=== PATIENT | male | born 1955 | race Caucasian/White ===

== ENCOUNTER → 2019-03-03 11:28 | Outpatient (BNVA) | payer MEDICARE, BC, SELFPAY | PROVIDERS: Family Provider Family Medicine; PCP Family Medicine; Visit Provider Urology | DX: R31.0 Gross hematuria (principal); N99.89 Other postprocedural complications and disorders of genitourinary system; R97.20 Elevated prostate specific antigen [PSA] | CPT/HCPCS: 81001; 84153; 87086 ==

== ENCOUNTER → 2019-03-04 13:16 | Outpatient (BNVA) | payer BC, SELFPAY | PROVIDERS: Family Provider Family Medicine; PCP Family Medicine; Visit Provider Urology | DX: R31.0 Gross hematuria (principal) | CPT/HCPCS: 88112 ==

== ENCOUNTER 2019-03-14 08:05 | Outpatient (CLI) | payer MEDICARE, SELFPAY ==
--- NOTE | 2019-03-14 08:17 | CT_ITS ---
WS: [id number] CT ABDOMEN AND PELVIS WITH AND WITHOUT CONTRAST HISTORY: HEMATURIA TECHNIQUE: Unenhanced 5 mm axial imaging first performed through the abdomen. Post contrast imaging t hrough the abdomen and pelvis. Oral contrast has been provided. Sagittal and coronal reformats are s ubmitted. All CT scans at [facility] use at least one of these dose optimization techniqu es: automated exposure control; mA and/or kV adjustment per patient size (includes targeted exams whe re dose is matched to clinical indication); or iterative reconstruction. CONTRAST: Omnipaque 300; 95 mL IV. DLP: 2730.32 mGycm COMPARISON: Renal ultrasound 09/28/2016 Lung bases are clear. No cardiomegaly. Small hiatal hernia. Mild hepatic steatosis. Prior cholecystectomy. No bile duct dilatation. Normal spleen, pancreas and a drenal glands. Mild atherosclerosis aorta with no aneurysm. RIGHT kidney: Normal size kidney with mild perinephric stranding. There is a tiny cortical hypodensit y in the upper pole measuring 6 mm. No enhancement. No renal calcifications or ureteral dilatation. N o enhancing mass. No urological abnormality. LEFT kidney: Normal size LEFT kidney. Simple cortical cyst measuring 1.3 cm in the lower pole. No sunita id mass. There is an additional very small hypodensity in the upper pole which is probably a cyst als o. No enhancement. Mild perinephric stranding with no obstruction. Mild tortuosity and narrowing of t he mid LEFT ureter but no soft tissue mass on the delayed imaging. No adenopathy, free fluid or free air. The appendix is normal. Moderate fecal retention. Bilateral fat-containing patent inguinal canals. Urinary bladder is well distended. Ureters enter int o the posterior lateral urinary bladder without difficulty. No obstruction of the ureters. Prostate g land is only very slightly enlarged. No adenopathy in the pelvis. Multilevel lower thoracic and lumbar spondylosis. No fractures are identified. No osteoblastic or ost eolytic bone disease. CT/CT abdomen pelvis wo/w [id number] IMPRESSION: 1. No solid mass, renal calcification or obstruction. 2. Mild tortuosity of the mid to distal LEFT ureter. No urological mass identi fied. 3. Small cysts within each kidney. 4. Prior cholecystectomy. 5. Mild prostate gland enlargement. 6. Mild constipation. 7. Mild hepatic steatosis.
[2019-03-14] MEDS: iohexol 300 mg/mL 50 mL Btl PO (09:40)
[2019-03-14 10:03] LABS: Blood Urea Nitrogen 11 mg/dL (8-23)
[2019-03-14] MEDS: iohexol 300 mg/mL 100 mL Btl IV (10:12)
== END 2019-03-14 08:06 | disposition home or self-care (01) ==
PROVIDERS: Family Provider Family Medicine; PCP Family Medicine; Visit Provider Urology
DX: R31.9 Hematuria, unspecified (principal); Q61.02 Congenital multiple renal cysts; N40.0 Benign prostatic hyperplasia without lower urinary tract symptoms; K59.00 Constipation, unspecified; K76.0 Fatty (change of) liver, not elsewhere classified
CPT/HCPCS: 74178; 81001; 82565; 84153; 84520; Q9967

== ENCOUNTER 2019-03-21 08:06 | Outpatient (REF) | payer MEDICARE, SELFPAY ==
[2019-03-21 13:15] LABS: Chol HDL Ratio 3.69 mg/dL (1.0-5.00); Cholesterol 199 mg/dL (0-200); Glucose 91 mg/dL (65-115); HDL Cholesterol 54 mg/dL (60-100); LDL Cholesterol Calculated 95 mg/dL (50-129); LDL HDL Ratio 1.76 RATIO (0.00-3.22); Triglycerides 252 mg/dL (0-150)
[2019-03-21 13:45] LABS: Estmated Average Glucose 126
== END 2019-03-21 08:07 | disposition home or self-care (01) ==
LOC: LAB 08:06
PROVIDERS: Family Provider Family Medicine; PCP Family Medicine; Visit Provider Dermatology
DX: Z01.89 Encounter for other specified special examinations (principal)
CPT/HCPCS: 80061; 82947; 83036

== ENCOUNTER → 2019-11-05 14:30 | Outpatient (BNVA) | payer MEDICARE, SELFPAY | PROVIDERS: Family Provider Family Medicine; PCP Family Medicine; Referring Provider Dermatology; Visit Provider Dermatology | DX: L73.9 Follicular disorder, unspecified (principal); L82.1 Other seborrheic keratosis; L91.8 Other hypertrophic disorders of the skin | CPT/HCPCS: 99203 ==

== ENCOUNTER 2020-08-04 09:10 | Outpatient (CLI) | payer MEDICARE, SELFPAY ==
--- NOTE | 2020-08-04 09:23 | XR_ITS ---
WS: [id number] Right shoulder, 2 views, 08/04/2020 Clinical Data: SHOULDER PAIN Comparison: None. Findings: There is osteoarthritis and narrowing of the right shoulder joint. There is a prominent spur of the r ight lesser tuberosity. There is spurring of the inferior aspect of the right glenoid rim. There are no fractures or dislocations. Mild osteoarthritis of the right AC joint is seen. The adjacent right c lavicle, scapula and ribs are normal. Soft tissues are unremarkable. XR/XR shoulder RT min 2V* [id number] Impression: 1. Moderate osteoarthritis of the right shoulder joint. 2. Mild osteoarthritis of the right AC joint.
--- NOTE | 2020-08-04 09:23 | XR_ITS ---
WS: [id number] Left shoulder, 2 views, 08/04/2020 Clinical Data: SHOULDER PAIN Comparison: None. Findings: There is a small spur of the left lesser tuberosity. There is minimal irregularity of the inferior le ft glenoid rim. There is osteoarthritis of the left AC joint. No fractures or dislocations are seen. The left clavicle, scapula and ribs are unremarkable. XR/XR shoulder LT min 2V* [id number] Impression: 1. Mild osteoarthritis of the left shoulder joint. 2. Mild osteoarthritis of the left AC joint.
== END 2020-08-04 09:11 | disposition home or self-care (01) ==
PROVIDERS: PCP Family Medicine; Visit Provider Family Medicine
DX: M25.512 Pain in left shoulder (principal); M25.511 Pain in right shoulder; M19.012 Primary osteoarthritis, left shoulder; M19.011 Primary osteoarthritis, right shoulder
CPT/HCPCS: 73030

== ENCOUNTER 2020-08-24 06:00 | Outpatient (RCR) | payer MEDICARE, SELFPAY | END 2020-09-11 23:59 | disposition home or self-care (01) | LOC: SPT 06:00 | PROVIDERS: PCP Family Medicine; Referring Provider Family Medicine; Visit Provider Family Medicine | DX: M25.512 Pain in left shoulder (principal) | CPT/HCPCS: 97033; 97110; 97161 ==

== ENCOUNTER 2020-09-12 06:00 | Outpatient (RCR) | payer MEDICARE, SELFPAY | END 2020-09-22 16:15 | disposition home or self-care (01) | LOC: SPT 06:00 | PROVIDERS: PCP Family Medicine; Referring Provider Family Medicine; Visit Provider Family Medicine | DX: M25.512 Pain in left shoulder (principal) | CPT/HCPCS: 97033; 97110; G0283 ==

== ENCOUNTER → 2020-11-01 09:50 | Outpatient (BNVA) | payer MEDICARE, SELFPAY | PROVIDERS: PCP Family Medicine; Visit Provider Nurse Practitioner Family | DX: Z20.822 Contact with and (suspected) exposure to COVID-19 (principal) | CPT/HCPCS: 87635 ==

== ENCOUNTER 2020-12-31 11:39 | Outpatient (CLI) | payer MEDICARE, SELFPAY ==
--- NOTE | 2020-12-31 11:45 | XR_ITS ---
WS: [id number] Exam: XR cervical spine 3V* [id number] Date/Time of Exam: 12/31/2020 12:30 PM Reason For Exam: ACCIDENTAL FALL/BACK PAIN No acute fracture or dislocation. Degenerative disc narrowing from C4 to C7. Mild spondylosis. The od ontoid is intact. Paraspinal soft tissues appear normal. XR/XR cervical spine 3V* [id number] IMPRESSION: 1. Mild degenerative changes. No fracture or malalignment.
--- NOTE | 2020-12-31 11:45 | XR_ITS ---
WS: [id number] Exam: XR thoracolumbar junct [id number] Date/Time of Exam: 12/31/2020 12:30 PM Reason For Exam: ACCIDENTAL FALL/BACK PAIN No fracture or dislocation. There is spondylosis of the lower thoracic and upper lumbar vertebra. No scoliosis. Disc spaces are preserved. XR/XR thoracolumbar junct [id number] IMPRESSION: 1. Spondylosis. No fracture or malalignment.
== END 2020-12-31 11:40 | disposition home or self-care (01) ==
LOC: RAD 11:44
PROVIDERS: PCP Family Medicine; Visit Provider Family Medicine
DX: M47.815 Spondylosis without myelopathy or radiculopathy, thoracolumbar region (principal); W19.XXXA Unspecified fall, initial encounter
CPT/HCPCS: 72040; 72080

== ENCOUNTER 2021-06-14 08:28 | Outpatient (RCR) | payer MEDICARE, SELFPAY | END 2021-07-12 23:59 | disposition home or self-care (01) | LOC: SPT 08:28 | PROVIDERS: PCP Family Medicine; Referring Provider Student in an Organized Health Care Education/Training Program; Visit Provider Student in an Organized Health Care Education/Training Program | DX: M17.11 Unilateral primary osteoarthritis, right knee (principal) | CPT/HCPCS: 97110; 97161 ==

== ENCOUNTER 2021-07-13 06:00 | Outpatient (RCR) | payer MEDICARE, SELFPAY | END 2021-08-11 23:59 | disposition home or self-care (01) | LOC: SPT 06:00 | PROVIDERS: PCP Family Medicine; Referring Provider Student in an Organized Health Care Education/Training Program; Visit Provider Student in an Organized Health Care Education/Training Program | DX: M17.11 Unilateral primary osteoarthritis, right knee (principal) | CPT/HCPCS: 97110 ==

== ENCOUNTER 2021-08-12 06:00 | Outpatient (RCR) | payer MEDICARE, SELFPAY | END 2021-09-11 23:59 | disposition home or self-care (01) | LOC: SPT 06:00 | PROVIDERS: PCP Family Medicine; Referring Provider Student in an Organized Health Care Education/Training Program; Visit Provider Student in an Organized Health Care Education/Training Program | DX: Z47.1 Aftercare following joint replacement surgery (principal); Z96.651 Presence of right artificial knee joint | CPT/HCPCS: 97110 ==

== ENCOUNTER 2021-09-12 06:00 | Outpatient (RCR) | payer MEDICARE, SELFPAY | END 2021-09-13 23:59 | disposition home or self-care (01) | LOC: SPT 06:00 | PROVIDERS: PCP Family Medicine; Referring Provider Student in an Organized Health Care Education/Training Program; Visit Provider Student in an Organized Health Care Education/Training Program | DX: Z47.1 Aftercare following joint replacement surgery (principal); Z96.651 Presence of right artificial knee joint | CPT/HCPCS: 97110 ==

== ENCOUNTER → 2022-05-01 10:50 | Outpatient (BNVA) | payer MEDICARE, SELFPAY | PROVIDERS: PCP Family Medicine; Visit Provider Family Medicine | DX: N42.1 Congestion and hemorrhage of prostate (principal); R97.20 Elevated prostate specific antigen [PSA] | CPT/HCPCS: 84153 ==

== ENCOUNTER → 2022-10-24 12:48 | Outpatient (BNVA) | payer MEDICARE, SELFPAY | PROVIDERS: PCP Family Medicine; Visit Provider Family Medicine | DX: R53.83 Other fatigue (principal); Z01.89 Encounter for other specified special examinations | CPT/HCPCS: 80053; 80061; 82607; 83880; 84443; 85025; 86140 ==

== ENCOUNTER → 2024-01-21 13:13 | Outpatient (BNVA) | payer MEDICARE, SELFPAY | PROVIDERS: PCP Family Medicine; Visit Provider Family Medicine | DX: J06.9 Acute upper respiratory infection, unspecified (principal) | CPT/HCPCS: 87426 ==

== ENCOUNTER 2024-05-06 09:57 | Outpatient (CLI) | payer MEDICARE, SELFPAY ==
--- NOTE | 2024-05-06 10:02 | XRR_ITS ---
PROCEDURE INFORMATION: Exam: XR Bilateral Knees, Standing, Anteroposterior Exam date and time: 05/06/2024 10:11 AM Age: 68 years old Clinical indication: Pain; Knee; Bilateral; Prior surgery; Surgery date: 6+ months; Surgery type: Bilat tka; Additional info: Osteoarthritis TECHNIQUE: Imaging protocol: Radiologic exam of the bilateral knees. Views: Standing frontal. COMPARISON: No relevant prior studies available. FINDINGS: Bones/joints: There is no evidence acute fracture or dislocation. The patient is post bilateral total hip arthroplasty without evidence for hardware complication. [place] bones are somewhat osteopenic. Soft tissues: Normal. XR/[place] [id number] IMPRESSION: Postsurgical change and osteopenia in the knees.
== END 2024-05-06 09:58 | disposition home or self-care (01) ==
PROVIDERS: PCP Family Medicine; Visit Provider Family Medicine
DX: M85.88 Other specified disorders of bone density and structure, other site (principal); Z96.643 Presence of artificial hip joint, bilateral
CPT/HCPCS: 73565

== ENCOUNTER → 2024-07-18 07:07 | Outpatient (BNVA) | payer MEDICARE, SELFPAY | PROVIDERS: PCP Family Medicine; Visit Provider Family Medicine | DX: Z12.5 Encounter for screening for malignant neoplasm of prostate (principal); E11.9 Type 2 diabetes mellitus without complications | CPT/HCPCS: 80048; 83036; G0103 ==

== ENCOUNTER → 2024-10-21 07:29 | Outpatient (BNVA) | payer MEDICARE, SELFPAY | PROVIDERS: PCP Family Medicine; Visit Provider Family Medicine | DX: E11.9 Type 2 diabetes mellitus without complications (principal); N41.1 Chronic prostatitis | CPT/HCPCS: 80053; 80061; 81000; 83036 ==

== ENCOUNTER 2024-10-23 06:54 | Outpatient (CLI) | payer MEDICARE, SELFPAY ==
--- NOTE | 2024-10-23 07:09 | MR_ITS ---
WS: [id number] MRI BRAIN WITH HIGH-RESOLUTION IMAGING THROUGH THE INTERNAL AUDITORY CANALS WITHOUT AND WITH CONTRAST HISTORY: OTHER SPECIFIED HEARING LOSS,BILATERAL COMPARISON: None available. TECHNIQUE: Multiplanar, multisequence imaging is performed through the brain. Additional 3 mm imaging performed in multiple planes through the internal auditory canal. Postcontrast imaging with 20 ml's of MultiHance. No acute intracranial hemorrhage, midline shift, edema or mass effect. Mild cerebral and cerebellar atrophy. Mild small vessel ischemic type changes in the subcortical white matter. No prior infarct. No significant hippocampal atrophy. Ventricles and extra-axial spaces are normal. No inferior displacement of cerebellar tonsils. Clivus and pituitary gland are normal. Internal and external auditory canals: Unremarkable. Cranial nerves VII and VIII complexes: Unremarkable. No enhancement or mass. Cerebellopontine angles: Normal. Paranasal sinuses: Opacification of the RIGHT frontal sinus and partial opacification RIGHT ethmoid air cells. No air-fluid levels. Mastoid air cells: Normal. Calvarium and scalp: Normal. Visualized [place] and dural venous sinuses demonstrate no abnormality. MR/MR iac's wo/w con* [id number] IMPRESSION: 1. Normal MRI internal auditory canals. No mass or abnormal signal. 2. Mild atrophy with mild small vessel disease. 3. Opacification RIGHT frontal and RIGHT ethmoid air cells.
[2024-10-23] MEDS: gadobenate dimeglumine 20 mL vial IV (08:00)
== END 2024-10-23 06:55 | disposition home or self-care (01) ==
LOC: RAD 06:54
PROVIDERS: PCP Family Medicine; Visit Provider Specialist
DX: H91.8X3 Other specified hearing loss, bilateral (principal)
CPT/HCPCS: 70553; 84153; A9577